=== PATIENT | female | born 2000 | race Caucasian/White ===

== ENCOUNTER 2022-02-28 04:54 | Inpatient (IN) | payer OTHER ==
[~2022-02-28] VITALS: Ht 167.6 cm; Wt 86.3 kg
[~2022-02-28 04:54] MED LIST: CEPH250SUA PO
[2022-02-28] MEDS ORDERED: PRENATAL TABLE1 EAC2 PO (05:34)
[2022-02-28 05:41] LABS: BASOPHILS ABSOLUTE AUTO 0.06 K/mm3 (0.00-0.23); BASOPHILS PERCENT AUTO 1 % (0-2); EOSINOPHILS ABSOLUTE AUTO 0.05 K/mm3 (0.00-0.68); EOSINOPHILS PERCENT AUTO 1 % (0-6); Hematocrit 32.7 % (33.0-51.0); Hemoglobin 10.8 g/dL (11.5-16.0); IMMATURE GRAN ABSOLUTE AUTO 0.06 K/mm3 (0.00-0.10); IMMATURE GRAN PERCENT AUTO 1 % (0-1); LYMPHOCYTES ABSOLUTE AUTO 2.02 K/mm3 (0.84-5.20); LYMPHOCYTES PERCENT AUTO 23 % (21-46); MONOCYTES ABSOLUTE AUTO 0.76 K/mm3 (0.16-1.47); MONOCYTES PERCENT AUTO 9 % (4-13); Mean Corpuscular HGB 28.9 pg (26.0-34.0); Mean Corpuscular Volume 87 fL (80-100); Mean Platelet Volume 11.2 fL (9.1-12.4); NEUTROPHILS ABSOLUTE AUTO 5.97 K/mm3 (1.96-9.15); NEUTROPHILS PERCENT AUTO 67 % (41-73); Platelet Count 239 K/mm3 (150-400); RDW Coefficient Variation 12.5 % (11.7-14.2); RDW Standard Deviation 39.6 fL (35.1-46.3); Red Blood Cell Count 3.74 M/mm3 (3.80-5.20); White Blood Cell Count 8.92 K/mm3 (4.00-11.30)
[2022-03-01 05:13] LABS: BASOPHILS ABSOLUTE AUTO 0.03 K/mm3 (0.00-0.23); BASOPHILS PERCENT AUTO 0 % (0-2); EOSINOPHILS ABSOLUTE AUTO 0.01 K/mm3 (0.00-0.68); EOSINOPHILS PERCENT AUTO 0 % (0-6); Hematocrit 25.8 % (33.0-51.0); Hemoglobin 8.6 g/dL (11.5-16.0); IMMATURE GRAN PERCENT AUTO 1 % (0-1); LYMPHOCYTES ABSOLUTE AUTO 1.67 K/mm3 (0.84-5.20); LYMPHOCYTES PERCENT AUTO 12 % (21-46); MONOCYTES ABSOLUTE AUTO 1.28 K/mm3 (0.16-1.47); MONOCYTES PERCENT AUTO 9 % (4-13); Mean Corpuscular HGB 29.7 pg (26.0-34.0); Mean Corpuscular HGB Conc 33.3 g/dL (31.5-36.5); Mean Corpuscular Volume 89 fL (80-100); Mean Platelet Volume 10.7 fL (9.1-12.4); NEUTROPHILS ABSOLUTE AUTO 10.54 K/mm3 (1.96-9.15); NEUTROPHILS PERCENT AUTO 77 % (41-73); Platelet Count 173 K/mm3 (150-400); RDW Coefficient Variation 12.5 % (11.7-14.2); RDW Standard Deviation 39.7 fL (35.1-46.3); White Blood Cell Count 13.63 K/mm3 (4.00-11.30)
[2022-03-01] MEDS ORDERED: IRON18 MG PO (17:32)
[2022-03-01] MEDS ORDERED: DOC250 PO (17:32)
--- NOTE | 2022-03-01 21:26 | NUR ---
DR GILLIAM IS NOTIFIED OF PPD SCORE OF 10 WITH NO HARM RISK. PT WILL FOLLOW UP IN THE CLINIC ON FRIDAY AND WITHIN [address] GILLIAM FOR PPD REASSMENT. PT STATES SHE HAS HAD ISSUES WITH ANXIETY AND THERAPY HAS HELPED. SHE PLANS TO ASK FOR HELP FROM HER FAMILY AND SEEK THERAPY AGAIN IF NEEDED.
== END 2022-03-01 21:20 | disposition home or self-care (01) | DRG 807 ==
LOC: OBS 04:54 → BC 04:58 → OBS 05:04 → BC 05:05
PROVIDERS: ADMIT Obstetrics & Gynecology
PROC: 10E0XZZ Delivery of Products of Conception, External Approach (ICD-10-PCS; principal; 2022-02-28)
PROC: 0HQ9XZZ Repair Perineum Skin, External Approach (ICD-10-PCS; 2022-02-28)
PROC: 0UQMXZZ Repair Vulva, External Approach (ICD-10-PCS; 2022-02-28)
PROC: 0UQKXZZ Repair Hymen, External Approach (ICD-10-PCS; 2022-02-28)
PROC: 3E0R3BZ Introduction of Anesthetic Agent into Spinal Canal, Percutaneous Approach (ICD-10-PCS; 2022-02-28)
PROC: 00HU33Z Insertion of Infusion Device into Spinal Canal, Percutaneous Approach (ICD-10-PCS; 2022-02-28)
DX: O13.4 Gestational [pregnancy-induced] hypertension without significant proteinuria, complicating childbirth (principal); Z37.0 Single live birth; O70.0 First degree perineal laceration during delivery; O43.123 Velamentous insertion of umbilical cord, third trimester; Z3A.37 37 weeks gestation of pregnancy
CPT/HCPCS: 36415; 51702; 85025; 86850; 86900; 86901; 90471; A9270; J1885; J2001; J2210; J2405; J2590; J3010; J7120

== ENCOUNTER → 2023-03-19 | Outpatient (CLI) | payer OTHER ==
[~2023-03-19] MED LIST changes: +DOC250 PO; +IRON18 MG PO; +PRENATAL TABLE1 EAC2 PO
[2023-03-20 10:45] LABS: Candida species (DNA Probe) Negative (NEGATIVE); G. vaginalis (DNA Probe) Positive (NEGATIVE); T. vaginalis (DNA Probe) Negative (NEGATIVE)
[2023-03-21 08:10] LABS: HIV AB/P24 AG SCREEN Non Reactive (Non Reactive)
[2023-03-22 01:10] LABS: CHLAMYDIA TRACHOMATIS, NAA Negative (Negative)
== END | disposition home or self-care (01) ==
LOC: LAB SHORT 18:18 → LAB 18:18
PROVIDERS: Family Medicine
DX: Z11.3 Encounter for screening for infections with a predominantly sexual mode of transmission (principal)
CPT/HCPCS: 86592; 87480; 87510; 87660